=== PATIENT | female | born 1960 | race African-American/Black ===

== ENCOUNTER 2016-10-12 11:29 | Emergency (ER) | payer SELFPAY ==
[~2016-10-12] VITALS: Ht 162.6 cm; Wt 74.8 kg
[2016-10-12] MEDS ORDERED: NKM (11:39)
[2016-10-12 11:42] VITALS: BP 181/99
[2016-10-12] MEDS ORDERED: DiphenhydrAMINE 50mg/ml Inj IVP ONE (11:45)
[2016-10-12] MEDS ORDERED: Solu-MEDROL 125mg Inj IVP ONE (11:45)
[2016-10-12] MEDS ORDERED: Sodium Chloride 500ML 500 ML IVPB ONE (11:45)
--- NOTE | 2016-10-12 12:08 | Emergency Room Report ---
History of Present Illness General Chief Complaint: Allergic Reaction Source: Patient Present Illness HPI Patient reports that she was eating at a coffee shop just prior to arrival when she began feeling itching and irritation to her hands and upper chest she noticed that she was having a rash develop Patient also complained of irritation to her throat She reports that this has started happening to her more recently Doesn't know exactly the source of the reaction Denies any chest pain denies any fevers or chills Allergies: Coded Allergies: No Known Allergies (Unverified , 10/12/16) Patient History Past Medical History: see triage record Pertinent Family History: none Reviewed Nursing Documentation: PMH: Agreed, PSxH: Agreed Nursing Documentation-PMH Past Medical History: No Stated History Review of Systems All Other Systems: negative except mentioned in HPI Physical Exam Vital Signs Date Time Temp Pulse Resp B/P Pulse Ox O2 Delivery O2 Flow Rate FiO2 10/12/16 11:33 97.3 111 18 181/99 100 Room Air Sp02 EP Interpretation: reviewed, normal General Appearance: well appearing, no apparent distress Head: normocephalic, atraumatic Eyes: bilateral eye EOMI, bilateral eye PERRL ENT: hearing grossly normal, normal pharynx, TMs + canals normal, uvula midline Neck: full range of motion, supple, no meningismus, no bony tend Respiratory: lungs clear, normal breath sounds, no rhonchi, no respiratory distress, no retraction, no accessory muscle use Cardiovascular #1: normal peripheral pulses, regular rate, rhythm, no edema, no gallop, no JVD, no murmur Gastrointestinal: normal bowel sounds, non tender, soft, no mass, no organomegaly, non-distended, no guarding, no hernia, no pulsatile mass, no rebound Genitourinary: no CVA tenderness Musculoskeletal: normal inspection Neurologic: oriented x3, responsive, 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, motor strength/ tone normal, sensory intact Psychiatric: mood/affect normal Skin: other - Diffuse urticarial rash involving the arms upper chest, airway is patent no stridor Lymphatic: normal inspection, no adenopathy Medical Decision Making Diagnostic Impression: Primary Impression: Allergic reaction ER Course Upon arrival in the patient's general discomfort along with her complaints of airway pathology patient was ordered for IV and acute intervention Patient at this time is refusing further IV and requesting oral medication Patient also at this time refused steroid medication After Benadryl and Zantac patient was observed hasn't significantly better At this time will have close patient followup Last Vital Signs Date Time Temp Pulse Resp B/P Pulse Ox O2 Delivery O2 Flow Rate FiO2 10/12/16 11:42 18 181/99 100 Room Air 10/12/16 11:33 97.3 111 Status: improved Disposition: HOME, SELF-CARE Condition: Improved Scripts Prednisone* (PREDNISONE*) 20 Mg Tablet 20 MG ORAL BID, #8 TAB Prov: MIKY LEBRON D.O. 10/12/16 Ranitidine Hcl* (ZANTAC*) 150 Mg Tablet 150 MG ORAL TWICE A DAY, #30 TAB Prov: MIKY LEBRON D.O. 10/12/16 Diphenhydramine Hcl* (BENADRYL*) 25 Mg Capsule 25 MG ORAL Q8HR Y for Itching, #21 CAP Prov: MIKY LEBRON D.O. 10/12/16 Additional Instructions: Patient is provided with the discharge instructions notified to follow up with primary doctor in the next 2-3 days otherwise return to the er with any worsening symptoms. Please note that this report is being documented using Access Closure technology. This can lead to erroneous entry secondary to incorrect interpretation by the dictating instrument. MIKY LEBRON D.O. Oct 12, 2016 12:08
[2016-10-12 12:21] VITALS: BP 162/78
[2016-10-12] MEDS ORDERED: RANITIDINE HCL150 MG ORAL (13:26)
[2016-10-12] MEDS ORDERED: BENADRYL25 MG ORAL (13:26)
[2016-10-12] MEDS ORDERED: PREDNISONE20 MG ORAL (13:26)
[2016-10-12 13:40] VITALS: BP 154/71
== END 2016-10-12 13:40 | disposition home or self-care (01) ==
LOC: EMR 12:35
DX: T78.40XA Allergy, unspecified, initial encounter (principal); X58.XXXA Exposure to other specified factors, initial encounter; L50.0 Allergic urticaria
CPT/HCPCS: 99284; J2930; 99282

== ENCOUNTER 2016-10-27 08:36 | Inpatient (IN) | payer MEDICAID ==
[~2016-10-27] VITALS: Ht 165.1 cm; Wt 86.2 kg
[~2016-10-27 08:36] MED LIST: BENADRYL25 MG ORAL; NKM; PREDNISONE20 MG ORAL; RANITIDINE HCL150 MG ORAL
[2016-10-27 09:08] VITALS: BP 143/78
[2016-10-27] MEDS ORDERED: cefTRIAXone 1 GM in NS 55 ML IVPB ONE (09:15)
[2016-10-27] MEDS ORDERED: Bactrim DS (160mg/800mg) tab ORAL ONE (09:15)
[2016-10-27 10:13] LABS: MEAN CORPUSCULAR HEMOGLOBIN 40.3 PG (27.0-31.0); MEAN CORPUSCULAR HGB CONC 33.9 G/DL (32.0-36.0); MEAN CORPUSCULAR VOLUME 119 FL (80-99); MEAN PLATELET VOLUME 7.2 FL (6.5-10.1); PLATELET COUNT 229 K/UL (150-450); RED BLOOD COUNT 3.37 M/UL (4.20-5.40); RED CELL DISTRIBUTION WIDTH 11.1 % (11.6-14.8); WHITE BLOOD COUNT 6.9 K/UL (4.8-10.8)
[2016-10-27 10:29] LABS: PROTHROMBIN TIME 10.5 SEC (9.30-11.50)
[2016-10-27 10:35] LABS: ALANINE AMINOTRANSFERASE 20 U/L (3-33); ALBUMIN/GLOBULIN RATIO 1.1 (1.0-2.7); ANION GAP 10 (5-15); ASPARTATE AMINO TRANSFERASE 18 U/L (5-40); CALCIUM 9.1 mg/dL (8.6-10.2); CARBON DIOXIDE 28 mEQ/L (20-30); CHLORIDE 95 mEQ/L (98-107); CREATININE 0.7 mg/dL (0.5-0.9); GLOMERULAR FILTRATION RATE > 60 mL/min (>60); HEMOLYSIS 6; POTASSIUM 3.5 mEQ/L (3.4-4.9); SODIUM 133 mEQ/L (135-145); TOTAL PROTEIN 7.7 g/dL (6.6-8.7); TROPONIN I < 0.30 ng/mL (<=0.30)
[2016-10-27 10:52] LABS: BAND NEUTROPHILS % (MANUAL) 0 % (0-8); BASOPHILS % (MANUAL) 0 % (0-2); EOSINOPHILS % (MANUAL) 1 % (0-3); LYMPHOCYTES % (MANUAL) 18 % (20-45); NEUTROPHILS % (MANUAL) 74 % (45-75); PLATELET ESTIMATE ADEQUATE; TOTAL CELLS COUNTED 100
[2016-10-27 10:53] LABS: MACROCYTES 1+; PLATELET MORPHOLOGY NORMAL
[2016-10-27 11:15] LABS: APPEARANCE,URINE CLEAR; KETONES,URINE NEGATIVE (NEGATIVE); LEUKOCYTE ESTERASE ,URINE 2+ (NEGATIVE); NITRITE,URINE NEGATIVE (NEGATIVE); PH,URINE 7 (4.5-8.0); PROTEIN,URINE NEGATIVE (NEGATIVE); UROBILINOGEN,URINE NORMAL MG/DL (0.0-1.0)
[2016-10-27 11:35] LABS: BACTERIA,URINE FEW /HPF; RBC,URINE 0-2 /HPF (0 - 2); SQUAMOUS EPITHELIAL CELL,UR OCCASIONAL /LPF (NONE/OCC)
[2016-10-27 11:39] VITALS: BP 135/80
[2016-10-27 13:30] VITALS: BP 147/86
[2016-10-27] MEDS ORDERED: Morphine Sulfate 2mg/ml Inj IVP PRN (13:30)
[2016-10-27] MEDS ORDERED: Acetaminophen 500mg (ES) tab ORAL PRN ×2 (13:30→16:00)
[2016-10-27 14:20] VITALS: BP 129/79
[2016-10-27 16:00] VITALS: BP 148/69
--- NOTE | 2016-10-27 16:03 | Emergency Room Report ---
History of Present Illness General Chief Complaint: Edema Source: Patient Present Illness HPI Patient presents with edema. This been developing over several weeks however she started with pain since last night. In addition to that she's had some redness in her feet and lower legs. She denies any medical history and does not taking medications. No fevers, chills, dyspnea, NVD, dysuria, hemoptysis, cough. Tetanus UTD. Allergies: Uncoded Allergies: UNK SPICE (Allergy, Severe, Hives, 10/27/16) Patient History Past Medical History: see triage record Social History: Denies: smoking, alcohol use, drug use Social History Narrative at home Last Menstrual Period: na Reviewed Nursing Documentation: PMH: Agreed, PSxH: Agreed Nursing Documentation-PMH Past Medical History: No Stated History Hx Cardiac Problems: No Hx Cancer: No Hx Gastrointestinal Problems: No Hx Neurological Problems: No Review of Systems All Other Systems: negative except mentioned in HPI Physical Exam Vital Signs Date Time Temp Pulse Resp B/P (MAP) Pulse Ox O2 Delivery O2 Flow Rate FiO2 10/27/16 08:53 97.9 95 18 164/92 98 Room Air Sp02 EP Interpretation: reviewed, normal General Appearance: well appearing, no apparent distress, GCS 15 Head: normocephalic Eyes: bilateral eye normal inspection, bilateral eye PERRL ENT: moist mucus membranes Neck: supple Respiratory: chest non-tender, lungs clear, normal breath sounds Cardiovascular #1: regular rate, rhythm Cardiovascular #2: 2+ radial (R), 2+ dorsalis pedis (R), 2+ dorsalis pedis (L) Gastrointestinal: normal inspection, normal bowel sounds, non tender, no mass, non-distended Musculoskeletal: back normal, gait/station normal, normal range of motion Neurologic: alert, oriented x3 Skin: normal inspection, warm/dry Medical Decision Making Diagnostic Impression: Primary Impression: Cellulitis Qualified Codes: L03.119 - Cellulitis of unspecified part of limb Additional Impressions: Lower extremity edema New onset type 2 diabetes mellitus ER Course Patient without medical hx presents with edema and erythema of LE. DDx: cellulitis, DVT, renal failure, cardiac disease, lung disease, venous disease amongst others. No h/o trauma. Need to exclude cardiac emergency and cause. EKG, CXR, labs indicated. Though exam against DVT will perform US. Will treat with antibiotics. Consider lasix. Patient declines pain medicine. Labs significant for hyperglycemia. Normal WBC and renal function. EKG unremarkable. CXR without CHF or inc cor. Start on metformin. Patient improved, but due to new onset diabetes and significant cellulitis, will admit for IV antibiotics and repeat glucose. Improved with treatment. Laboratory Tests Test 10/27/16 09:40 10/27/16 10:50 White Blood Count 6.9 K/UL (4.8-10.8) Red Blood Count 3.37 M/UL (4.20-5.40) L Hemoglobin 13.6 G/DL (12.0-16.0) Hematocrit 40.1 % (37.0-47.0) Mean Corpuscular Volume 119 FL (80-99) H Mean Corpuscular Hemoglobin 40.3 PG (27.0-31.0) H Mean Corpuscular Hemoglobin Concent 33.9 G/DL (32.0-36.0) Red Cell Distribution Width 11.1 % (11.6-14.8) L Platelet Count 229 K/UL (150-450) Mean Platelet Volume 7.2 FL (6.5-10.1) Neutrophils (%) (Auto) % (45.0-75.0) Lymphocytes (%) (Auto) % (20.0-45.0) Monocytes (%) (Auto) % (1.0-10.0) Eosinophils (%) (Auto) % (0.0-3.0) Basophils (%) (Auto) % (0.0-2.0) Differential Total Cells Counted 100 Neutrophils % (Manual) 74 % (45-75) Lymphocytes % (Manual) 18 % (20-45) L Monocytes % (Manual) 7 % (1-10) Eosinophils % (Manual) 1 % (0-3) Basophils % (Manual) 0 % (0-2) Band Neutrophils 0 % (0-8) Platelet Estimate Adequate Platelet Morphology Normal Macrocytosis 1+ Prothrombin Time 10.5 SEC (9.30-11.50) Prothrombin Time INR 1.0 (0.9-1.1) PTT 36 SEC (23-33) H Sodium Level 133 mEQ/L (135-145) L Potassium Level 3.5 mEQ/L (3.4-4.9) Chloride Level 95 mEQ/L (98-107) L Carbon Dioxide Level 28 mEQ/L (20-30) Anion Gap 10 (5-15) Blood Urea Nitrogen 8 mg/dL (7-23) Creatinine 0.7 mg/dL (0.5-0.9) Estimate Glomerular Filtration Rate > 60 mL/min (>60) Glucose Level 307 mg/dL (74-106) H Lactic Acid Level 1.60 mmol/L (0.66-2.22) Calcium Level 9.1 mg/dL (8.6-10.2) Total Bilirubin 0.4 mg/dL (0.0-1.2) Aspartate Amino Transferase (AST) 18 U/L (5-40) Alanine Aminotransferase (ALT) 20 U/L (3-33) Alkaline Phosphatase 102 U/L (35-104) Total Creatine Kinase 97 U/L (26-140) Troponin I < 0.30 ng/mL (<=0.30) Pro-B-Type Natriuretic Peptide 55 pg/mL (0-125) Total Protein 7.7 g/dL (6.6-8.7) Albumin 4.1 g/dL (3.5-5.2) Globulin 3.6 g/dL Albumin/Globulin Ratio 1.1 (1.0-2.7) Urine Color Pale yellow Urine Appearance Clear Urine pH 7 (4.5-8.0) Urine Specific [place] 1.005 (1.005-1.035) Urine Protein Negative (NEGATIVE) Urine Glucose (UA) 3+ (NEGATIVE) H Urine Ketones Negative (NEGATIVE) Urine Occult Blood Negative (NEGATIVE) Urine Nitrite Negative (NEGATIVE) Urine Bilirubin Negative (NEGATIVE) Urine Urobilinogen Normal MG/DL (0.0-1.0) Urine Leukocyte Esterase 2+ (NEGATIVE) H Urine RBC 0-2 /HPF (0 - 2) Urine WBC 2-4 /HPF (0 - 2) Urine Squamous Epithelial Cells Occasional /LPF Urine Bacteria Few /HPF (NONE) EKG Diagnostic Results Rate: normal Rhythm: NSR ST Segments: no acute changes Rhythm Strip Diag. Results EP Interpretation: yes Rhythm: NSR, no PVC's, no ectopy Chest X-Ray Diagnostic Results Chest X-Ray Diagnostic Results : Chest X-Ray Ordered: Yes # of Views/Limited/Complete: 1 View Indication: Other EP Interpretation: Yes Interpretation: no consolidation, no effusion, no pneumothorax, no acute cardiopulmonary disease Impression: No acute disease Interpreting ER Provider: signed Jama Oropeza MD Last Vital Signs Date Time Temp Pulse Resp B/P (MAP) Pulse Ox O2 Delivery O2 Flow Rate FiO2 10/27/16 14:20 98.0 87 20 129/79 99 Room Air Status: improved Disposition: ADMITTED INPATIENT Condition: Serious Referrals: NOT CHOSEN IPA/,REFERRING (PCP) Jama Oropeza M.D. Oct 27, 2016 16:03
[2016-10-27] MEDS: Ampicillin/Sulbactam Sod 3 GM in NS 110 ML IVPB SCH (16:04)
[2016-10-27] MEDS: NovoLOG Insulin Flexpen SUBQ SCH ×2 (16:30→21:15)
--- NOTE | 2016-10-27 18:45 | Consultation ---
DATE OF CONSULTATION: 10/27/2016 INFECTIOUS DISEASE CONSULTATION CONSULTING PHYSICIAN: Juan Muller M.D., covering for Carlos Gudino M.D. ATTENDING PHYSICIAN: Jarad Beebe M.D. REASON FOR CONSULTATION: Bilateral lower extremity cellulitis. HISTORY OF PRESENT ILLNESS: This is a 56-year-old [place] female with no reported past medical history other than a recent ER visit at [facility] for hives secondary to chili pepper ingestion, now admitted for one day of bilateral lower extremity swelling, erythema, and warmth. The patient reports she was in her usual state of health. She denies any fevers, chills, nausea, vomiting, diarrhea, shortness of breath, chest pain, headache, or sore throat. She has had no sick contacts. She lives nearby with family, immigrated here from [facility] [place] several years ago, currently unemployed and she lives in an air-conditioned home but she has been sitting outside with her legs dependent in the seated position. She has taken no recent antibiotics and in fact can recall no prior antibiotics of any kind. She denies any history of MRSA infection and has no prior history of skin or soft tissue infection. She does have a family history notable for father with diabetes. In the emergency room, she was noted to be afebrile without a leukocytosis but was found to have a fasting glucose of 307 and she is thought to have a new diagnosis of diabetes of uncertain duration. She had a chest x-ray that did not demonstrate any obvious infiltrate or effusion, but shows perhaps subtle pulmonary venous congestion with a normal proBNP. She had an EKG that is reported to be unremarkable. She also had bilateral lower extremity Dopplers, the report is not available to me but verbal report is that it was negative for DVT. She received a dose of oral trimethoprim sulfamethoxazole x1, a dose of ceftriaxone 1 g IV and subsequently was started on Unasyn 3 g IV q.6 hours. PAST MEDICAL HISTORY: None reported. MEDICATIONS: None. ALLERGIES: Possible chili peppers. No known drug allergies. FAMILY HISTORY: Father with diabetes. PERSONAL AND SOCIAL HISTORY: She is a nonsmoker. Never alcohol. 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 Denies any illicit drugs. REVIEW OF SYSTEMS: Eleven-point review of systems is negative otherwise than that described in the history of present illness. PHYSICAL EXAMINATION: VITAL SIGNS: The patient has been afebrile currently with a temperature of 98.0 Fahrenheit, heart rate 87, blood pressure 129/79, and respiratory rate 14, and she is saturating 99% on room air. GENERAL: She is nontoxic appearing. No apparent distress. Clinically well, mildly obese female. HEENT: No oral lesions. No exudate. No pharyngeal injection. No ulcerations and she does not have any tonsillar hypertrophy or oral thrush. She has no cervical lymphadenopathy. NECK: Supple. Cranial nerves II through XII are intact. CARDIAC: She has a regular rate and rhythm. She has a 2/6 systolic ejection murmur heard best at the left upper sternal border that does not radiate. Her PMI is not displaced. She does not have any carotid bruits bilaterally. PULMONARY: Clear to auscultation bilaterally without any dullness to percussion with good inspiratory effort without pleurisy and she is breathing comfortably. ABDOMEN: She is obese and nontender to palpation. Normoactive bowel sounds. No hepatosplenomegaly. No overlying skin lesions. EXTREMITIES: Bilateral lower extremities below the knee has 1+ pitting edema from the mid canela distally. On both lower extremities, she does have erythema and warmth without any focal fluctuance. No masses and no overlying skin lesions of any kind. This erythema does not extend into the feet, but she does have significant edema to the dorsal aspects of both her feet. Her pedal pulses are intact distally. She has no onychomycosis. Her cap refill was brisk. Her extremities are warm. They are not mottled. There is no cyanosis. Sensation is intact distally. NEUROLOGIC: She has a nonfocal neurologic exam. GENITOURINARY: No external lesions, examined in the presence of a female advanced nursing professor. MUSCULOSKELETAL: Unremarkable with no evidence of effusions or synovitis grossly on exam. Laboratory Data: As described in the HPI, she has a white blood cell count of 6.9, hemoglobin 13.6, and platelets 229,000. She does not have a significant left shift and neutrophils 74 with 0% bands. Chemistry panel is notable for hyponatremia with a sodium of 133. Potassium is low at 3.5. She has a normal creatinine at 0.7 and glucose 307, which was obtained this morning at 9:40. Shows a normal lactic acid of 1.6. She has normal liver function tests with a bilirubin of 0.4, AST 18, ALT 20, and alkaline phosphatase 102. She has a normal creatine kinase of 97. She has a negative troponin I. Her proBNP is 55 and she has a normal albumin of 4.1. Urinalysis, she has a low specific gravity of 1.005, negative protein, and negative ketones. She does have 2+ leukocyte esterase, but only 2 to 4 white blood cells, negative nitrite, and she has 3+ glucose in her urine. She has urine squamous epithelial cells present may suggest contaminated specimen with few bacteria. Chest x-ray as described above. Pending formal read of bilateral lower extremity Dopplers. ASSESSMENT: This is a 56-year-old [place] female with an elevated body mass index, now apparently new diagnosis of diabetes without diabetic ketoacidosis. Also admitted afebrile without leukocytosis with bilateral lower extremity edema and erythema concerning for bilateral lower extremity cellulitis. She may have some component of venous stasis and this may have been exacerbated by the recent severely hot weather in the [place] area. She does not have any evidence of focal fluctuance that might suggest an abscess and she has no skin breakdown to suggest an obvious source. Given her skin tone, it is difficult to assess the boundaries but this seems more consistent with a non-purulent cellulitis, perhaps an early erysipelas. She has no known history of MRSA. 1. Bilateral lower extremity cellulitis. 2. Afebrile. 3. No leukocytosis. 4. No evidence of systemic toxicity. 5. New diagnosis of diabetes. 6. Possible underlying venous stasis changes, previously undiagnosed. PLAN: 1. Status post one dose of Bactrim and intravenous ceftriaxone. Continue Unasyn 3 g intravenous every six hours, currently day # 0. 2. MRSA screen of the nose. 3. Blood cultures x2 sets now, although given her absence of systemic symptoms I suspect these blood cultures will be negative. 4. Serum antistreptolysin titer to rule out evidence of an underlying streptococcal infection. 5. Follow up formal read of bilateral lower extremity Dopplers. 6. Bilateral lower extremity ankle and tibia-fibula x-rays to rule out underlying bony abnormality, but exam does not suggest an underlying abscess forming process. 7. Elevate lower extremities. 8. Monitor daily CBC and CMP. 9. Follow up on hemoglobin A1c. 10. There is no evidence of macrovascular peripheral arterial disease with intact pulses distally, but may have some component of microvascular disease secondary to a previously undiagnosed diabetes that may be contributing to lower extremity edema. Thank you for this consultation. Please do not hesitate to contact me at phone number with any questions. Juan Muller MD DR: STEPH JOB#: [id number] CC:
[2016-10-27 21:00] VITALS: BP 137/69
[2016-10-27] MEDS: Heparin 5000 units/ml inj SUBQ SCH (21:16)
[2016-10-28] VITALS: BP 126/54
[2016-10-28] MEDS: Ampicillin/Sulbactam Sod 3 GM in NS 110 ML IVPB SCH ×4 (00:09→17:31)
[2016-10-28 04:00] VITALS: BP 113/70
[2016-10-28] MEDS: NovoLOG Insulin Flexpen SUBQ SCH ×4 (06:17→21:32)
[2016-10-28 07:16] LABS: MEAN CORPUSCULAR HEMOGLOBIN 42.5 PG (27.0-31.0); MEAN CORPUSCULAR HGB CONC 35.9 G/DL (32.0-36.0); MEAN CORPUSCULAR VOLUME 118 FL (80-99); PLATELET COUNT 212 K/UL (150-450); RED BLOOD COUNT 3.07 M/UL (4.20-5.40); RED CELL DISTRIBUTION WIDTH 10.9 % (11.6-14.8); WHITE BLOOD COUNT 5.2 K/UL (4.8-10.8)
[2016-10-28 07:46] LABS: ANION GAP 13 (5-15); CARBON DIOXIDE 26 mEQ/L (20-30); CHLORIDE 100 mEQ/L (98-107); CREATININE 0.8 mg/dL (0.5-0.9); GLOMERULAR FILTRATION RATE > 60 mL/min (>60); HEMOLYSIS 9; POTASSIUM 3.8 mEQ/L (3.4-4.9); SODIUM 139 mEQ/L (135-145)
[2016-10-28 07:59] VITALS: BP 118/60
[2016-10-28] MEDS: Heparin 5000 units/ml inj SUBQ SCH ×2 (08:40→21:31)
[2016-10-28 09:26] LABS: BAND NEUTROPHILS % (MANUAL) 0 % (0-8); BASOPHILS % (MANUAL) 0 % (0-2); EOSINOPHILS % (MANUAL) 2 % (0-3); LYMPHOCYTES % (MANUAL) 23 % (20-45); MACROCYTES 1+; NEUTROPHILS % (MANUAL) 72 % (45-75); PLATELET ESTIMATE ADEQUATE; PLATELET MORPHOLOGY NORMAL; TOTAL CELLS COUNTED 100
--- NOTE | 2016-10-28 09:54 | Diagnostic Imaging Report ---
Indication: Chest pain Technique: One view of the chest Comparison: none Findings: Lungs and pleural spaces are clear. Heart size is normal. Impression: No acute process This agrees with the preliminary interpretation provided overnight by [facility]eradiology service.
[2016-10-28] MEDS: metFORMIN 500mg tab ORAL SCH ×2 (10:07→15:59)
[2016-10-28 12:01] VITALS: BP 144/80
--- NOTE | 2016-10-28 12:46 | Diagnostic Imaging Report ---
Indication: SWELL Technique: 2 views of the right ankle Comparison: none Findings: Exam is somewhat limited due to lack of a mortise view. No definite acute fractures or dislocations. Joint spaces are clear. There is soft tissue swelling medially and laterally. There are plantar and calcaneal spurs Impression: Somewhat limited exam. No definite acute bony trauma Nonspecific soft tissue swelling
--- NOTE | 2016-10-28 12:47 | Diagnostic Imaging Report ---
Indication: SWELL Technique: 2 views of the left ankle Comparison: none Findings: Is limited due to lack of mortise view. No definite acute fractures. No dislocations. Joint spaces are preserved. There are plantar spurs. Impression: Soft tissue swelling No acute bony trauma
--- NOTE | 2016-10-28 12:49 | Diagnostic Imaging Report ---
Indication: SWELL Technique: 2 views of the right tibia and fibula Comparison: none Findings: No acute fractures. No dislocations. Joint spaces are preserved. Impression: Negative
--- NOTE | 2016-10-28 12:50 | Diagnostic Imaging Report ---
Indication: SWELL Technique: 2 views of the left tibia and fibula Comparison: none Findings: No radiopaque foreign body. No acute fractures. No dislocations Impression: Negative
[2016-10-28] MEDS ORDERED: Tubing IV Secondary IV ONE (15:53)
[2016-10-28] MEDS ORDERED: NS 275ml ONE (15:53)
--- NOTE | 2016-10-28 16:04 | Infectious Diseases Prog Note ---
Assessment/Plan Assessment/Plan ASSESSMENT: 56-year-old [place]ijani female with an elevated body mass index, now apparently new diagnosis of diabetes without diabetic ketoacidosis with HGBA1c >12. Also admitted afebrile without leukocytosis with bilateral lower extremity edema and erythema concerning for bilateral lower extremity cellulitis. She may have some component of venous stasis and this may have been exacerbated by the recent severely hot weather in the [place] area. She does not have any evidence of focal fluctuance that might suggest an abscess and she has no skin breakdown to suggest an obvious source. Given her skin tone, it is difficult to assess the boundaries but this seems more consistent with a non-purulent cellulitis, perhaps an early erysipelas. She has no known history of MRSA. Has had reduction of edema and erythema with elevation of her legs. She is reported to have had bLE dopplers negative for DVT on admission but formal report not available yet. There is no evidence of macrovascular peripheral arterial disease with intact pulses distally, but may have some component of microvascular disease secondary to a previously undiagnosed diabetes that may be contributing to lower extremity edema. 1. Bilateral lower extremity erysipelas, improving with 24 hrs empiric IV unasyn and rest/elevation. S/P ble ANKLE TIB/FIB X RAYS NEGATIVE FOR FRACTURE, FOREIGN BODY, OR GAS. 2. Afebrile. 3. No leukocytosis. 4. No evidence of systemic toxicity. tolerating unasyn. 5. New diagnosis of diabetes, HGBa1c 12.4.. 6. Possible underlying venous stasis changes, previously undiagnosed. 7. no evidence of CHF based on CXR and pro BNP 56. 8. no ulcerations, no skin breaks, no ecthyma. PLAN: 1. Continue Unasyn 3 g intravenous every six hours, currently day # 1. (10/27 s/p bactrim X1) (10/27 s/p ceftriaxone x1) 2. f/u MRSA screen of the nose (10/27) 3. f/u Blood cultures x2 sets (10/27) , although given her absence of systemic symptoms I suspect these blood cultures will be negative. 4. f/u Serum antistreptolysin titer to rule out serologic evidence of a Grp A streptococcal infection. 5. Follow up formal read of bilateral lower extremity Dopplers. 6. Elevate lower extremities. 7. Monitor daily CBC and CMP. 8. glycemic control fsbg<150 to ensure effective leukocyte function 9. If blood cx remain ngtd tommorrow, MRSA screen negative, and continues to clinically improve, plan to transition to Keflex 500mg po QID for 7 days. Thank you for this consultation. Covering for Dr. Gudino. Please do not hesitate to contact me at phone number with any questions. Subjective Constitutional: Reports: no symptoms HEENT: Reports: no symptoms Respiratory: Reports: no symptoms Cardiovascular: Reports: no symptoms Gastrointestinal/Abdominal: Reports: no symptoms Genitourinary: Reports: no symptoms Hematologic: Reports: no symptoms Musculoskeletal: Reports: swelling Allergies: Uncoded Allergies: UNK SPICE (Allergy, Severe, Hives, 10/27/16) Objective Vital Signs Last 24 Hour Vital Signs Date Time Temp Pulse Resp B/P (MAP) Pulse Ox O2 Delivery O2 Flow Rate FiO2 10/28/16 12:01 97.9 82 20 144/80 99 Room Air 10/28/16 07:59 98.0 91 20 118/60 99 Room Air 10/28/16 04:00 97.5 91 21 113/70 98 Room Air 10/28/16 00:00 97.7 89 20 126/54 98 Room Air 10/27/16 21:00 97.9 90 20 137/69 99 Room Air 10/27/16 16:00 97.6 86 20 148/69 99 Room Air Height (Feet): 5 Height (Inches): 5.00 Weight (Pounds): 190 Objective GENERAL: She is nontoxic appearing. No apparent distress. Clinically well, mildly obese female. HEENT: No oral lesions. No exudate. No pharyngeal injection. No ulcerations and she does not have any tonsillar hypertrophy or oral thrush. She has no cervical lymphadenopathy. NECK: Supple. Cranial nerves II through XII are intact. CARDIAC: She has a regular rate and rhythm. She has a 2/6 systolic ejection murmur heard best at the left upper sternal border that does not radiate. Her PMI is not displaced. She does not have any carotid bruits bilaterally. PULMONARY: Clear to auscultation bilaterally without any dullness to percussion with good inspiratory effort without pleurisy and she is breathing comfortably. ABDOMEN: She is obese and nontender to palpation. Normoactive bowel sounds. No hepatosplenomegaly. No overlying skin lesions. EXTREMITIES: Bilateral lower extremities below the knee has trace edema from the mid canela distally decreased from yesterday, with residual 1+ edema at levels of ankles. warmth has resolved, and erythema essentially resolved. Her pedal pulses are intact distally. She has no onychomycosis. Her cap refill was brisk. They are not mottled. There is no cyanosis. Sensation is intact distally. NEUROLOGIC: She has a nonfocal neurologic exam. MUSCULOSKELETAL: Unremarkable with no evidence of effusions or synovitis grossly on exam. Laboratory Tests Test 10/27/16 16:00 10/28/16 06:15 Hemoglobin A1c 12.4 % (< 6.0) H White Blood Count 5.2 K/UL (4.8-10.8) Red Blood Count 3.07 M/UL (4.20-5.40) L Hemoglobin 13.1 G/DL (12.0-16.0) Hematocrit 36.4 % (37.0-47.0) L Mean Corpuscular Volume 118 FL (80-99) H Mean Corpuscular Hemoglobin 42.5 PG (27.0-31.0) H Mean Corpuscular Hemoglobin Concent 35.9 G/DL (32.0-36.0) Red Cell Distribution Width 10.9 % (11.6-14.8) L Platelet Count 212 K/UL (150-450) Mean Platelet Volume 7.0 FL (6.5-10.1) Neutrophils (%) (Auto) % (45.0-75.0) Lymphocytes (%) (Auto) % (20.0-45.0) Monocytes (%) (Auto) % (1.0-10.0) Eosinophils (%) (Auto) % (0.0-3.0) Basophils (%) (Auto) % (0.0-2.0) Differential Total Cells Counted 100 Neutrophils % (Manual) 72 % (45-75) Lymphocytes % (Manual) 23 % (20-45) Monocytes % (Manual) 3 % (1-10) Eosinophils % (Manual) 2 % (0-3) Basophils % (Manual) 0 % (0-2) Band Neutrophils 0 % (0-8) Platelet Estimate Adequate Platelet Morphology Normal Macrocytosis 1+ Sodium Level 139 mEQ/L (135-145) Potassium Level 3.8 mEQ/L (3.4-4.9) Chloride Level 100 mEQ/L (98-107) Carbon Dioxide Level 26 mEQ/L (20-30) Anion Gap 13 (5-15) Blood Urea Nitrogen 9 mg/dL (7-23) Creatinine 0.8 mg/dL (0.5-0.9) Estimat Glomerular Filtration Rate > 60 mL/min (>60) Glucose Level 308 mg/dL (74-106) H Calcium Level 9.0 mg/dL (8.6-10.2) Current Medications Medications (Trade) Dose Ordered Sig/Estrellita Route PRN Reason Start Time Stop Time Status Last Admin Dose Admin Acetaminophen (Tylenol) 500 mg Q4H PRN ORAL Mild Pain/Temp > 100.5 10/27/16 16:00 11/26/16 15:59 Ampicillin Sodium/ Sulbactam Sodium 3 gm/Sodium Chloride 110 ml @ 220 mls/hr Q6HR IVPB 10/27/16 16:00 11/03/16 15:59 10/28/16 12:28 Dextrose (Dextrose 50%) STAT PRN IV Hypoglycemia 10/28/16 09:15 11/27/16 09:14 Heparin Sodium (Porcine) (Heparin 5000 units/ml) 5,000 units EVERY 12 HOURS SUBQ 10/27/16 21:00 11/26/16 20:59 10/28/16 08:40 Insulin Aspart (NovoLOG) BEFORE MEALS AND HS SUBQ 10/28/16 11:30 11/27/16 11:29 10/28/16 11:51 Metformin HCl (Glucophage) 500 mg TIAC ORAL 10/28/16 10:00 11/27/16 09:59 10/28/16 10:07 Morphine Sulfate (Morphine Sulfate) 2 mg Q8H PRN IVP Severe Pain (Pain Scale 7-10) 10/27/16 13:30 11/03/16 13:29 Ranitidine HCl (Zantac) 150 mg TWICE A DAY ORAL 10/27/16 20:30 11/26/16 20:29 10/28/16 08:33 Juan Muller M.D. Oct 28, 2016 16:04
--- NOTE | 2016-10-28 19:30 | History and Physical Report ---
DATE OF ADMISSION: 10/27/2016 SOURCE OF INFORMATION: The patient and EMR. HISTORY OF PRESENT ILLNESS: The patient is a pleasant 56-year-old female. The patient has presented regarding the increasing pain and swelling in the lower extremities. At the time of evaluation, the patient denies any pain or any discomfort. PAST MEDICAL HISTORY: Unremarkable. Denies. PAST SURGICAL HISTORY: Denies. ALLERGIES: NKDA. HOME MEDICATIONS: None. SOCIAL HISTORY: Denies history of illicit drug abuse, smoking, or alcohol abuse. FAMILY HISTORY: Reviewed and noncontributory. PHYSICAL EXAMINATION: VITAL SIGNS: Blood pressure 130/80, temperature 98.2, pulse oximetry 98% on room air, and respiratory rate 18. HEAD AND NECK: Atraumatic and normocephalic. CHEST: Clear to auscultation. HEART: S1 and S2. Regular rate and rhythm. ABDOMEN: Soft. No organomegaly. MUSCULOSKELETAL: Positive for diffuse redness and swelling in the lower extremities. LABORATORY DATA: Labs dated 10/27/2016 show WBC 6.9, hemoglobin 13.6, and platelets 229,000. Sodium 133, potassium 3.5, BUN 8, and creatinine 0.7. UA is 3+ glucose. A1c 12.4. ASSESSMENT AND PLAN: 1. Cellulitis of the lower extremities. 2. Swelling of the lower extremities. 3. Diabetes, new diagnosis. 4. Hyponatremia. 5. Gastrointestinal and deep vein thrombosis prophylaxis. PLAN OF CARE: We will obtain the lower extremity duplex. Start the patient on metformin 500 mg three times a day and sliding scale. Infectious diseases has been consulted. Continue with the empiric antibiotic therapy of Unasyn. Jarad Beebe M.D. DR: PRADEEP JOB#: [id number] CC:
[2016-10-28 20:00] VITALS: BP 147/76
[2016-10-29] VITALS: BP 132/80
[2016-10-29] MEDS: Ampicillin/Sulbactam Sod 3 GM in NS 110 ML IVPB SCH ×4 (05:22→12:40)
[2016-10-29] MEDS: metFORMIN 500mg tab ORAL SCH ×3 (05:47→17:00)
[2016-10-29] MEDS: NovoLOG Insulin Flexpen SUBQ SCH ×4 (05:49→22:10)
[2016-10-29 06:50] LABS: MEAN CORPUSCULAR HEMOGLOBIN 41.2 PG (27.0-31.0); MEAN CORPUSCULAR HGB CONC 35.5 G/DL (32.0-36.0); MEAN CORPUSCULAR VOLUME 116 FL (80-99); MEAN PLATELET VOLUME 7.9 FL (6.5-10.1); PLATELET COUNT 219 K/UL (150-450); RED CELL DISTRIBUTION WIDTH 10.6 % (11.6-14.8); WHITE BLOOD COUNT 5.4 K/UL (4.8-10.8)
[2016-10-29 07:17] LABS: ANION GAP 16 (5-15); CARBON DIOXIDE 20 mEQ/L (20-30); CHLORIDE 100 mEQ/L (98-107); CREATININE 0.7 mg/dL (0.5-0.9); GLOMERULAR FILTRATION RATE > 60 mL/min (>60); HEMOLYSIS 22; POTASSIUM 4.1 mEQ/L (3.4-4.9); SODIUM 136 mEQ/L (135-145)
[2016-10-29 07:49] LABS: LYMPHOCYTES % (MANUAL) 25 % (20-45); NEUTROPHILS % (MANUAL) 74 % (45-75); TOTAL CELLS COUNTED 100
[2016-10-29 07:50] LABS: BAND NEUTROPHILS % (MANUAL) 0 % (0-8); BASOPHILS % (MANUAL) 0 % (0-2); EOSINOPHILS % (MANUAL) 0 % (0-3); MACROCYTES 1+; PLATELET ESTIMATE ADEQUATE; PLATELET MORPHOLOGY NORMAL
[2016-10-29 08:27] VITALS: BP 143/84
[2016-10-29] MEDS: Heparin 5000 units/ml inj SUBQ SCH ×2 (10:18→22:09)
[2016-10-29 12:33] VITALS: BP 131/85
--- NOTE | 2016-10-29 14:57 | Infectious Diseases Prog Note ---
Assessment/Plan Assessment/Plan ASSESSMENT: 56-year-old Syrian female new diagnosis of DM with HGBA1c >12. b/l erysipelas resolved on 48 hrs empiric IV unasyn. blood cx from admission ngtd at 48 hrs. MRSA nares swab negative. 1. Bilateral lower extremity erysipelas, resolving with 24 hrs empiric IV unasyn and rest/elevation. S/P ble ANKLE TIB/FIB X RAYS NEGATIVE FOR FRACTURE, FOREIGN BODY, OR GAS. 2. Afebrile. 3. No leukocytosis. 4. No evidence of systemic toxicity. tolerating unasyn. 5. New diagnosis of diabetes, HGBa1c 12.4.. 6. Possible underlying venous stasis changes, previously undiagnosed. 7. no evidence of CHF based on CXR and pro BNP 56. 8. no ulcerations, no skin breaks, no ecthyma. 9. MRSA screen nares negative 10. blood cx (10/27) ngtd at 48 hrs. PLAN: 1. D/c IV unasyn D#2 now. (10/27 s/p bactrim X1) (10/27 s/p ceftriaxone x1) 2. Start Keflex 500mg PO QID for 5 more days to complete 7 day total course. 3. f/u Blood cultures x2 sets (10/27) 4. f/u Serum antistreptolysin titer to rule out serologic evidence of a Grp A streptococcal infection. 5. Elevate lower extremities at rest. 7. Monitor daily CBC and CMP. 8. glycemic control fsbg<150 to ensure effective leukocyte function okay for discharge on PO keflex from ID standpoint once other medical issues stabilized. Thank you for this consultation. Covering for Dr. Gudino. Please do not hesitate to contact me at phone number with any questions. Subjective Constitutional: Reports: no symptoms Cardiovascular: Reports: no symptoms Gastrointestinal/Abdominal: Reports: no symptoms Genitourinary: Reports: no symptoms Neurologic: Reports: no symptoms Skin: Reports: no symptoms Musculoskeletal: Reports: no symptoms Allergies: Uncoded Allergies: UNK SPICE (Allergy, Severe, Hives, 10/27/16) Objective Vital Signs Last 24 Hour Vital Signs Date Time Temp Pulse Resp B/P (MAP) Pulse Ox O2 Delivery O2 Flow Rate FiO2 10/29/16 12:33 97.0 73 18 131/85 99 Room Air 10/29/16 08:27 97.7 89 18 143/84 99 Room Air 10/29/16 00:00 97.2 79 20 132/80 98 Room Air 10/28/16 20:00 97.1 83 20 147/76 Room Air Height (Feet): 5 Height (Inches): 5.00 Weight (Pounds): 190 Objective GENERAL: She is nontoxic appearing. No apparent distress. Clinically well, mildly obese female. HEENT: No oral lesions. No exudate. No pharyngeal injection. No ulcerations and she does not have any tonsillar hypertrophy or oral thrush. She has no cervical lymphadenopathy. NECK: Supple. Cranial nerves II through XII are intact. CARDIAC: She has a regular rate and rhythm. She has a 2/6 systolic ejection murmur heard best at the left upper sternal border that does not radiate. Her PMI is not displaced. She does not have any carotid bruits bilaterally. PULMONARY: Clear to auscultation bilaterally without any dullness to percussion with good inspiratory effort without pleurisy and she is breathing comfortably. ABDOMEN: She is obese and nontender to palpation. Normoactive bowel sounds. No hepatosplenomegaly. No overlying skin lesions. EXTREMITIES: Bilateral lower extremities below the knee edema has nearly resolved, with some residual trace edema at dorsum of feet b/l. warmth has resolved, and erythema completely resolved. Her pedal pulses are intact distally. She has no onychomycosis. Her cap refill was brisk. They are not mottled. There is no cyanosis. Sensation is intact distally. no inguinal LAD palpated. NEUROLOGIC: She has a nonfocal neurologic exam. MUSCULOSKELETAL: Unremarkable with no evidence of effusions or synovitis grossly on exam. Microbiology Date/Time Source Procedure Growth Status 10/27/16 09:40 Blood Blood Culture - Preliminary NO GROWTH AFTER 24 HOURS Resulted 10/27/16 09:35 Blood Blood Culture - Preliminary NO GROWTH AFTER 24 HOURS Resulted 10/27/16 17:00 Nasal Nares MRSA Culture - Final NO METHICILLIN RESISTANT STAPH AUREUS... Complete Laboratory Tests Test 10/29/16 05:00 White Blood Count 5.4 K/UL (4.8-10.8) Red Blood Count 3.20 M/UL (4.20-5.40) L Hemoglobin 13.2 G/DL (12.0-16.0) Hematocrit 37.1 % (37.0-47.0) Mean Corpuscular Volume 116 FL (80-99) H Mean Corpuscular Hemoglobin 41.2 PG (27.0-31.0) H Mean Corpuscular Hemoglobin Concent 35.5 G/DL (32.0-36.0) Red Cell Distribution Width 10.6 % (11.6-14.8) L Platelet Count 219 K/UL (150-450) Mean Platelet Volume 7.9 FL (6.5-10.1) Neutrophils (%) (Auto) % (45.0-75.0) Lymphocytes (%) (Auto) % (20.0-45.0) Monocytes (%) (Auto) % (1.0-10.0) Eosinophils (%) (Auto) % (0.0-3.0) Basophils (%) (Auto) % (0.0-2.0) Differential Total Cells Counted 100 Neutrophils % (Manual) 74 % (45-75) Lymphocytes % (Manual) 25 % (20-45) Monocytes % (Manual) 1 % (1-10) Eosinophils % (Manual) 0 % (0-3) Basophils % (Manual) 0 % (0-2) Band Neutrophils 0 % (0-8) Platelet Estimate Adequate Platelet Morphology Normal Macrocytosis 1+ Sodium Level 136 mEQ/L (135-145) Potassium Level 4.1 mEQ/L (3.4-4.9) Chloride Level 100 mEQ/L (98-107) Carbon Dioxide Level 20 mEQ/L (20-30) Anion Gap 16 (5-15) H Blood Urea Nitrogen 14 mg/dL (7-23) Creatinine 0.7 mg/dL (0.5-0.9) Estimat Glomerular Filtration Rate > 60 mL/min (>60) Glucose Level 270 mg/dL (74-106) H Calcium Level 9.0 mg/dL (8.6-10.2) Current Medications Medications (Trade) Dose Ordered Sig/Estrellita Route PRN Reason Start Time Stop Time Status Last Admin Dose Admin Acetaminophen (Tylenol) 500 mg Q4H PRN ORAL Mild Pain/Temp > 100.5 10/27/16 16:00 11/26/16 15:59 Ampicillin Sodium/ Sulbactam Sodium 3 gm/Sodium Chloride 110 ml @ 220 mls/hr Q6HR IVPB 10/27/16 16:00 11/03/16 15:59 10/29/16 12:40 Dextrose (Dextrose 50%) STAT PRN IV Hypoglycemia 10/28/16 09:15 11/27/16 09:14 Heparin Sodium (Porcine) (Heparin 5000 units/ml) 5,000 units EVERY 12 HOURS SUBQ 10/27/16 21:00 11/26/16 20:59 10/29/16 10:18 Insulin Aspart (NovoLOG) BEFORE MEALS AND HS SUBQ 10/28/16 11:30 11/27/16 11:29 10/29/16 12:02 Metformin HCl (Glucophage) 500 mg TIAC ORAL 10/28/16 10:00 11/27/16 09:59 10/29/16 11:49 Morphine Sulfate (Morphine Sulfate) 2 mg Q8H PRN IVP Severe Pain (Pain Scale 7-10) 10/27/16 13:30 11/03/16 13:29 Ranitidine HCl (Zantac) 150 mg TWICE A DAY ORAL 10/27/16 20:30 11/26/16 20:29 10/29/16 10:12 Juan Muller M.D. Oct 29, 2016 14:57
[2016-10-29] MEDS ORDERED: KEFLEX500 MG ORAL (14:58)
[2016-10-29] MEDS: Cephalexin 500mg cap ORAL SCH ×2 (18:35→22:07)
--- NOTE | 2016-10-29 18:41 | General Progress Note ---
Assessment/Plan Status: stable Assessment/Plan 1- cellulitis lower extremity 2- DM: new dx 3- GI-DVT prophylaxia Plan: ok to DC tomorrow with PO antibiotic Subjective ROS Limited/Unobtainable: No Constitutional: Reports: no symptoms HEENT: Reports: no symptoms Cardiovascular: Reports: no symptoms Allergies: Uncoded Allergies: UNK SPICE (Allergy, Severe, Hives, 10/27/16) Objective Last 24 Hour Vital Signs Date Time Temp Pulse Resp B/P (MAP) Pulse Ox O2 Delivery O2 Flow Rate FiO2 10/29/16 12:33 97.0 73 18 131/85 99 Room Air 10/29/16 08:27 97.7 89 18 143/84 99 Room Air 10/29/16 00:00 97.2 79 20 132/80 98 Room Air 10/28/16 20:00 97.1 83 20 147/76 Room Air Intake and Output 10/29/16 10/30/16 19:00 07:00 Intake Total 240 ml Balance 240 ml Intake Oral 240 ml # Voids 2 Laboratory Tests 10/29/16 05:00: White Blood Count 5.4, Red Blood Count 3.20L, Hemoglobin 13.2, Hematocrit 37.1, Mean Corpuscular Volume 116H, Mean Corpuscular Hemoglobin 41.2H, Mean Corpuscular Hemoglobin Concent 35.5, Red Cell Distribution Width 10.6L, Platelet Count 219, Mean Platelet Volume 7.9, Neutrophils (%) (Auto) , Lymphocytes (%) (Auto) , Monocytes (%) (Auto) , Eosinophils (%) (Auto) , Basophils (%) (Auto) , Differential Total Cells Counted 100, Neutrophils % ( Manual) 74, Lymphocytes % (Manual) 25, Monocytes % (Manual) 1, Eosinophils % ( Manual) 0, Basophils % (Manual) 0, Band Neutrophils 0, Platelet Estimate Adequate, Platelet Morphology Normal, Macrocytosis 1+, Sodium Level 136, Potassium Level 4.1, Chloride Level 100, Carbon Dioxide Level 20, Anion Gap 16H , Blood Urea Nitrogen 14, Creatinine 0.7, Estimat Glomerular Filtration Rate > 60, Glucose Level 270H, Calcium Level 9.0 Height (Feet): 5 Height (Inches): 5.00 Weight (Pounds): 190 General Appearance: WD/WN EENT: PERRL/EOMI Neck: supple Extremities: non-tender, other - Improved bilateral leg redness Edema: 1+ Pedal (L), 1+ Pedal (R) Neurologic: fountain supervisor II-XII grossly normal Jarad Beebe MD Oct 29, 2016 18:41
[2016-10-29 21:00] VITALS: BP 143/71
[2016-10-30] VITALS: BP 141/76
[2016-10-30 04:07] VITALS: BP 117/59
[2016-10-30] MEDS: metFORMIN 500mg tab ORAL SCH ×3 (05:43→17:13)
[2016-10-30] MEDS: NovoLOG Insulin Flexpen SUBQ SCH ×3 (05:46→17:15)
[2016-10-30] MEDS ORDERED: Glimepiride 1mg tab ORAL SCH (06:30)
[2016-10-30 06:58] LABS: MEAN CORPUSCULAR HEMOGLOBIN 42.5 PG (27.0-31.0); MEAN CORPUSCULAR HGB CONC 36.2 G/DL (32.0-36.0); MEAN CORPUSCULAR VOLUME 117 FL (80-99); MEAN PLATELET VOLUME 6.9 FL (6.5-10.1); PLATELET COUNT 234 K/UL (150-450); RED BLOOD COUNT 3.29 M/UL (4.20-5.40); WHITE BLOOD COUNT 6.8 K/UL (4.8-10.8)
[2016-10-30 07:09] LABS: ANION GAP 17 (5-15); CALCIUM 9.5 mg/dL (8.6-10.2); CARBON DIOXIDE 23 mEQ/L (20-30); CHLORIDE 97 mEQ/L (98-107); CREATININE 0.7 mg/dL (0.5-0.9); GLOMERULAR FILTRATION RATE > 60 mL/min (>60); HEMOLYSIS 1; POTASSIUM 3.9 mEQ/L (3.4-4.9); SODIUM 137 mEQ/L (135-145)
[2016-10-30 07:41] LABS: BAND NEUTROPHILS % (MANUAL) 0 % (0-8); BASOPHILS % (MANUAL) 1 % (0-2); EOSINOPHILS % (MANUAL) 0 % (0-3); LYMPHOCYTES % (MANUAL) 26 % (20-45); MACROCYTES 1+; NEUTROPHILS % (MANUAL) 71 % (45-75); PLATELET ESTIMATE ADEQUATE; PLATELET MORPHOLOGY NORMAL; TOTAL CELLS COUNTED 100
[2016-10-30] MEDS ORDERED: AMARYL1 MG ORAL (07:57)
[2016-10-30] MEDS ORDERED: GLUCOPHAGE500 MG ORAL (07:57)
[2016-10-30] MEDS ORDERED: KEFLEX500 M1 ORAL (07:57)
[2016-10-30 08:00] VITALS: BP 149/83
[2016-10-30] MEDS: Cephalexin 500mg cap ORAL SCH ×3 (08:44→17:12)
[2016-10-30] MEDS: Heparin 5000 units/ml inj SUBQ SCH (08:49)
[2016-10-30 12:00] VITALS: BP 134/76
[2016-10-30 16:00] VITALS: BP 123/82
--- NOTE | 2016-10-30 16:56 | Infectious Diseases Prog Note ---
Assessment/Plan Assessment/Plan ASSESSMENT: 56-year-old Salvadorean female new diagnosis of DM with HGBA1c >12. b/l erysipelas resolved on 48 hrs empiric IV unasyn. blood cx from admission (10/27/16)ngtd at 72 hrs. MRSA nares swab negative. 1. Bilateral lower extremity erysipelas, resolving with hrs empiric IV unasyn and rest/elevation, now on PO keflex. S/P ble ANKLE TIB/FIB X RAYS NEGATIVE FOR FRACTURE, FOREIGN BODY, OR GAS. 2. Afebrile. 3. No leukocytosis. 4. No evidence of systemic toxicity. tolerating abx. 5. New diagnosis of diabetes, HGBa1c 12.4.. 6. Possible underlying venous stasis changes, previously undiagnosed. 7. no evidence of CHF based on CXR and pro BNP 56. 8. no ulcerations, no skin breaks, no ecthyma. 9. MRSA screen nares negative 10. blood cx (10/27) ngtd. PLAN: 1. Keflex 500mg po QID for 4 more days to complete 7 days total coruse (10/29 s/p IV unasyn D#2) (10/27 s/p bactrim X1) (9/ s/p ceftriaxone x1) 2. . Elevate lower extremities at rest. 3. glycemic control fsbg<150 to ensure effective leukocyte function okay for discharge on PO keflex from ID standpoint. Thank you for this consultation. Covering for Dr. Gudino. Please do not hesitate to contact me at phone number with any questions. Subjective Constitutional: Reports: no symptoms HEENT: Reports: no symptoms Respiratory: Reports: no symptoms Cardiovascular: Reports: no symptoms Musculoskeletal: Reports: no symptoms Allergies: Uncoded Allergies: UNK SPICE (Allergy, Severe, Hives, 10/27/16) Objective Vital Signs Last 24 Hour Vital Signs Date Time Temp Pulse Resp B/P (MAP) Pulse Ox O2 Delivery O2 Flow Rate FiO2 10/30/16 16:00 97.3 82 20 123/82 99 Room Air 10/30/16 12:00 97.3 79 20 134/76 99 Room Air 10/30/16 08:00 98.1 90 20 149/83 100 Room Air 10/30/16 04:07 97.9 78 20 117/59 98 Room Air 10/30/16 00:00 97.9 80 20 141/76 99 Room Air 10/29/16 21:00 97.8 80 20 143/71 100 Room Air Height (Feet): 5 Height (Inches): 5.00 Weight (Pounds): 190 Objective GENERAL: She is nontoxic appearing. No apparent distress. Clinically well, mildly obese female. HEENT: No oral lesions. No exudate. No pharyngeal injection. No ulcerations and she does not have any tonsillar hypertrophy or oral thrush. She has no cervical lymphadenopathy. NECK: Supple. Cranial nerves II through XII are intact. CARDIAC: She has a regular rate and rhythm. She has a 2/6 systolic ejection murmur heard best at the left upper sternal border that does not radiate. Her PMI is not displaced. She does not have any carotid bruits bilaterally. PULMONARY: Clear to auscultation bilaterally without any dullness to percussion with good inspiratory effort without pleurisy and she is breathing comfortably. ABDOMEN: She is obese and nontender to palpation. Normoactive bowel sounds. No hepatosplenomegaly. No overlying skin lesions. EXTREMITIES: Bilateral lower extremities below the knee edema has nearly resolved, with some residual trace edema at dorsum of feet b/l. warmth has resolved, and erythema completely resolved. Her pedal pulses are intact distally. She has no onychomycosis. Her cap refill was brisk. They are not mottled. There is no cyanosis. Sensation is intact distally. no inguinal LAD palpated. NEUROLOGIC: She has a nonfocal neurologic exam. MUSCULOSKELETAL: Unremarkable with no evidence of effusions or synovitis grossly on exam. Microbiology Date/Time Source Procedure Growth Status 10/27/16 17:00 Nasal Nares MRSA Culture - Final NO METHICILLIN RESISTANT STAPH AUREUS... Complete Laboratory Tests Test 10/30/16 05:05 White Blood Count 6.8 K/UL (4.8-10.8) Red Blood Count 3.29 M/UL (4.20-5.40) L Hemoglobin 14.0 G/DL (12.0-16.0) Hematocrit 38.6 % (37.0-47.0) Mean Corpuscular Volume 117 FL (80-99) H Mean Corpuscular Hemoglobin 42.5 PG (27.0-31.0) H Mean Corpuscular Hemoglobin Concent 36.2 G/DL (32.0-36.0) H Red Cell Distribution Width 11.0 % (11.6-14.8) L Platelet Count 234 K/UL (150-450) Mean Platelet Volume 6.9 FL (6.5-10.1) Neutrophils (%) (Auto) % (45.0-75.0) Lymphocytes (%) (Auto) % (20.0-45.0) Monocytes (%) (Auto) % (1.0-10.0) Eosinophils (%) (Auto) % (0.0-3.0) Basophils (%) (Auto) % (0.0-2.0) Differential Total Cells Counted 100 Neutrophils % (Manual) 71 % (45-75) Lymphocytes % (Manual) 26 % (20-45) Monocytes % (Manual) 2 % (1-10) Eosinophils % (Manual) 0 % (0-3) Basophils % (Manual) 1 % (0-2) Band Neutrophils 0 % (0-8) Platelet Estimate Adequate Platelet Morphology Normal Macrocytosis 1+ Sodium Level 137 mEQ/L (135-145) Potassium Level 3.9 mEQ/L (3.4-4.9) Chloride Level 97 mEQ/L (98-107) L Carbon Dioxide Level 23 mEQ/L (20-30) Anion Gap 17 (5-15) H Blood Urea Nitrogen 12 mg/dL (7-23) Creatinine 0.7 mg/dL (0.5-0.9) Estimat Glomerular Filtration Rate > 60 mL/min (>60) Glucose Level 234 mg/dL (74-106) H Calcium Level 9.5 mg/dL (8.6-10.2) Current Medications Medications (Trade) Dose Ordered Sig/Estrellita Route PRN Reason Start Time Stop Time Status Last Admin Dose Admin Acetaminophen (Tylenol) 500 mg Q4H PRN ORAL Mild Pain/Temp > 100.5 10/27/16 16:00 11/26/16 15:59 Cephalexin (Keflex) 500 mg FOUR TIMES A DAY ORAL 10/29/16 18:00 11/03/16 16:00 10/30/16 12:15 Dextrose (Dextrose 50%) STAT PRN IV Hypoglycemia 10/28/16 09:15 11/27/16 09:14 Glimepiride (Amaryl) 2 mg ACBREAKFAST ORAL 10/30/16 06:30 11/29/16 06:29 10/30/16 05:44 Heparin Sodium (Porcine) (Heparin 5000 units/ml) 5,000 units EVERY 12 HOURS SUBQ 10/27/16 21:00 11/26/16 20:59 10/30/16 08:49 Insulin Aspart (NovoLOG) BEFORE MEALS AND HS SUBQ 10/28/16 11:30 11/27/16 11:29 10/30/16 11:35 Metformin HCl (Glucophage) 500 mg TIAC ORAL 10/28/16 10:00 11/27/16 09:59 10/30/16 11:33 Morphine Sulfate (Morphine Sulfate) 2 mg Q8H PRN IVP Severe Pain (Pain Scale 7-10) 10/27/16 13:30 11/03/16 13:29 Ranitidine HCl (Zantac) 150 mg TWICE A DAY ORAL 10/27/16 20:30 11/26/16 20:29 10/30/16 08:44 Juan Muller M.D. Oct 30, 2016 16:56
[2016-10-30 20:00] VITALS: BP 140/78
--- NOTE | 2016-10-31 17:02 | Cardiology Report ---
APPROVED REPORT EKG Measurement Heart [id number] Normal sinus rhythm Nonspecific T wave abnormality Abnormal ECG
[2016-11-01 07:50] LABS: OTHERS PATHOLOGIST COMMENT
--- NOTE | 2016-11-01 14:16 | Discharge Summary ---
Discharge Summary Hospital Course Date of Admission Oct 27, 2016 at 12:16 Date of Discharge Oct 30, 2016 at 20:25 Admitting Diagnosis Cellulitis, New Onset Diabetes HPI Odette Hernandez is a 56 year old female who was admitted on Oct 27, 2016 at 12:16 for Cellulitis, New Onset Diabetes Hospital Course [id number] Discharge Discharge Disposition Patient was discharged to Home () Discharge Diagnoses: Peri Birch NP Nov 01, 2016 14:16
--- NOTE | 2016-11-01 14:51 | Diagnostic Imaging Report ---
APPROVED REPORT CPT Code: 24860 Present Symptoms Comments: Pain BILATERAL: Imaging reveals a patent deep venous system bilaterally. There is no evidence of thrombus within the femoral, popliteal or tibial segments. The greater saphenous veins are also within normal limits. Doppler indicates normal spontaneous flow within these segments.
--- NOTE | 2016-11-02 06:00 | Discharge Summary 2 SIG ---
DATE OF ADMISSION: 10/27/2016 DATE OF DISCHARGE: 10/30/2016 POWERHOUSE OILER: Juan Muller M.D. BRIEF HOSPITAL COURSE: The patient is a 56-year-old female who presented due to increasing pain and swelling in the lower extremity. On evaluation at ED, had normal WBC, however, glucose was elevated. EKG was in normal sinus rhythm and chest x-ray showed no acute disease. She was admitted for cellulitis of lower extremity. The patient denied any medical history, however, A1c was 12. UA was with 3+ glucose. She was started on metformin with sliding scale of insulin. She was given Unasyn every six hours. She received one dose of Bactrim and intravenous ceftriaxone. X-rays of the lower extremity was negative for fractures or dislocation; there was nonspecific soft tissue swelling on both ankles. She was recommended leg elevation. The patient's bilateral erysipelas resolved after 48 hours of empiric intravenous Unasyn. Blood cultures from admission did not isolate any growth and methicillin-resistant Staphylococcus aureus nares swab was negative. Antibiotic was then switched to p.o. Keflex. The patient was eventually discharged home. FINAL DIAGNOSES: 1. Cellulitis of lower extremity. 2. Diabetes mellitus, new diagnosis. DISPOSITION: The patient was discharged home. DISCHARGE MEDICATIONS: Refer to medication list. FOLLOWUP: The patient was advised to follow up with PMD in a week. ACTIVITY: As tolerated. Continue with leg elevation. Jarad Beebe M.D. I have been assigned to dictate discharge summary on this account and I was not involved in the patient's management. Peri Birch N.P. DR: ABDI JOB#: [id number] CC: RAMBO
== END 2016-10-30 20:25 | disposition home or self-care (01) | DRG 383 ==
LOC: EMR 09:30 → 4E 12:16 → EDBEDREQ 12:47 → UNDODISIN 10-30 15:38
DX: L03.116 Cellulitis of left lower limb (principal); E87.1 Hypo-osmolality and hyponatremia; A46 Erysipelas; E11.9 Type 2 diabetes mellitus without complications; I87.8 Other specified disorders of veins; L03.115 Cellulitis of right lower limb
CPT/HCPCS: 36415; 71010; 80048; 80053; 81003; 82550; 82962; 83036; 83605; 83880; 84484; 85007; 85025; 85610; 85730; 87040; 87081; 93005; 93970; 99285; J1815